=== PATIENT | male | born 1970 | race Caucasian/White ===

== ENCOUNTER 2021-11-28 20:34 | Emergency (ER) | payer OTHER, SELFPAY ==
--- NOTE | ~2021-11-28 | XR_ITS ---
EXAM: XR finger 2nd LT min 2V DATE: 11/28/2021 21:30 HISTORY: LACERATION FROM WOOD WORK TOOL AT [facility] JOINT 2ND DIGIT . COMPARISON: None available. FINDINGS: Normal mineralization. Incomplete fracture of the dorsal cortex of the second metacarpal h ead, with overlying skin laceration and soft tissue swelling. No lytic or blastic lesion. Joint space s are maintained. IMPRESSION: Incomplete fracture of the dorsal cortex the second metacarpal head. Reviewed, dictated and finalized at location K. IMPRESSION: Incomplete fracture of the dorsal cortex the second metacarpal head .
[2021-11-28 20:44] VITALS: BP 151/99; PULSE 81; RESP 18; TEMP 36.8; O2SAT 98
--- NOTE | 2021-11-28 21:29 | ED.WOUNDLAC ---
HPI - Wound/Laceration General Chief Complaint: Wound/Laceration Stated Complaint: cut left hand Time Seen by Provider: 11/28/21 21:01 Source: patient Mode of arrival: ambulatory Limitations: no limitations History of Present Illness HPI narrative: 50-year-old male presents the emergency room with complaints laceration to his left hand second knuckle. Patient was whittling wood when the knife slipped and hit his hand patient states he is up-to-date on his tetanus shot has had it in the last 5 years. Patient with full range of motion and no numbness or tingling to the finger. Capillary refill less than 2 seconds. Related Data Allergies Allergy/AdvReac Type Severity Reaction Status Date / Time No Known Allergies Allergy Verified 11/28/21 22:06 Review of Systems Review of Systems: CONSTITUTIONAL: Denies fever, chills, or sweats. EYES: Denies visual changes, redness, or discharge. ENT: Denies rhinorrhea, congestion, sore throat, or otalgia. CARDIOVASCULAR: Denies chest pain, palpitations, or edema. RESPIRATORY: Denies cough or dyspnea. GASTROINTESTINAL: Denies abdominal pain, nausea, vomiting, or diarrhea. GENITOURINARY: Denies dysuria or hematuria. SKIN: Laceration left hand second knuckle. Denies rash or itching. MUSCULOSKELETAL: Denies back pain, joint pain, or myalgia. NEUROLOGIC: Denies headache, numbness, dizziness, or weakness. PSYCHIATRIC: Denies anxiety or depression. Exam Narrative: GENERAL: Well-appearing, well-nourished, and in no acute distress. HEAD: Normocephalic, atraumatic. EYES: PERRLA and EOMI. ENT: Nares clear, no rhinorrhea or epistaxis. Mucous membranes moist. Oropharynx without tonsillar hypertrophy exudate or other lesions. Bilateral TMs pearly reddy nonbulging NECK: Supple. No adenopathy or masses. No carotid bruits or JVD CHEST: Clear to auscultation. No respiratory distress. No wheezes rales or rhonchi HEART: Regular rate and rhythm. No murmur heard. Normal peripheral pulses. ABDOMEN: Soft, nontender, nondistended, normal active bowel sounds. EXTREMITIES: Normal range of motion. No edema. SKIN: 1.5 cm laceration to left second metacarpal joint. Warm, dry, no rash. NEURO: No focal deficits. Alert and oriented x3. PSYCH: Normal mood and affect. Course Course Emergency Course: Patient laceration repaired without difficulty. Talk to hand surgeon Dr. Marie. Patient to call in the morning follow-up with him on Friday. Patient educated on need for antibiotics and wound care. Patient discharged home. Vital Signs Vital signs: Vital Signs Temperature 36.8 C 11/28/21 20:44 Pulse Rate 81 11/28/21 20:44 Respiratory Rate 18 11/28/21 20:44 Blood Pressure 151/99 H 11/28/21 20:44 Pulse Oximetry 98 11/28/21 20:44 Oxygen Delivery Room Air 11/28/21 20:44 Temperature 36.8 C 11/28/21 20:44 Pulse Rate 81 11/28/21 20:44 Respiratory Rate 18 11/28/21 20:44 Blood Pressure 151/99 H 11/28/21 20:44 Pulse Oximetry 98 11/28/21 20:44 Oxygen Delivery Room Air 11/28/21 20:44 Procedures Laceration Laceration 1: Date: 11/28/21 Time: 22:20 Site: hand Side (If applicable): left Size (cm): 2 Description: linear Depth: involves tendon Local Anesthetic: lidocaine 1% Amount of anesthesia used (mL): 2 Pre-repair: wound explored and irrigated extensively ====== Skin Level ====== Skin layer closed with: nylon Size (cm): 4-0 (nylon) Number of sutures: 3 Technique: simple, interrupted ====== Subcutaneous Layer ====== ====== Muscle Layer ====== ====== Tendon Layer ====== Dressing: antibiotic ointment and non adherent applied with Coban. Nursing to apply splint. MDM - Wound/Laceration MDM Narrative Medical decision making narrative: 50-year-old male HPI as noted. Suspect laceration versus open fracture. X-ray shows incomplete fracture of the dorsal cortex
[2021-11-28] MEDS: Please add drug allergy info to patient profile. 1 EACH XX (22:25)
[2021-11-28] MEDS: LIDOCAINE HCL 1% PF 30 ML VIAL (22:25)
[2021-11-28] MEDS: AMOXICILLIN/CLAVULANATE K 875-125 MG TAB 1 TABLET PO (22:48)
== END 2021-11-28 23:20 | disposition home or self-care (01) ==
PROVIDERS: Emergency Provider Nurse Practitioner Family
DX: S62.301B Unspecified fracture of second metacarpal bone, left hand, initial encounter for open fracture (principal); W26.0XXA Contact with knife, initial encounter
CPT/HCPCS: 12001; 29130; 73140; 99284; A9270

== ENCOUNTER 2024-10-04 08:08 | Emergency (ER) | payer OTHER, SELFPAY ==
--- NOTE | ~2024-10-04 | XR_ITS ---
XR knee RT 3V Ordering provider: Tiara Patrick APRN History: . twisting injury . Comparison: None. FINDINGS: BONES: No acute fracture or dislocation. JOINT SPACES: Normal. SOFT TISSUES: Minimal fluid in the suprapatellar bursa. IMPRESSION: No acute osseous abnormality right knee. Lucency seen in the area of the tibial spines normal is most likely summation shadow. If clinically suspicious CT is advised Reviewed, dictated and finalized at location A.
--- NOTE | 2024-10-04 08:09 | ED_ITS ---
HPI - Extremity Injury (Lower) General Chief Complaint: Extremity Injury, Lower Stated Complaint: right knee injury Time Seen by Provider: 10/04/24 08:21 Source: patient, RN notes reviewed and old records reviewed Mode of arrival: ambulatory Limitations: no limitations History of Present Illness HPI Narrative: 53-year-old male presents to the [facility] with right knee pain since Friday, 2 days. Reports a twisting injury. Pain to the medial aspect of the knee. Has been applying ice, wearing a compression sleeve. Injury: Right: knee Treatments prior to arrival: cold therapy, NSAIDS and other (knee brace) Related Data Home Medications ?Medication ?Instructions ?Recorded ?Confirmed ?Last Taken ?Type losartan 100 mg tablet mg 10/04/24 Unknown History Allergies Allergy/AdvReac Type Severity Reaction Status Date / Time No Known Allergies Allergy Verified 10/04/24 08:20 Review of Systems Review of Systems: All systems reviewed & are unremarkable except as noted in HPI and below Constitutional: Constitutional: Reports no additional constitutional complaints ENT: Reports system reviewed and no additional complaints, except as documented Cardiovascular: Cardiovascular: Reports no additional cardiovascular complaints, Denies chest pain and Denies dyspnea Respiratory: Respiratory: Reports no additional respiratory complaints, Denies chest congestion, Denies cough and Denies dyspnea Musculoskeletal: Musculoskeletal: Reports as per HPI and Reports arthralgias (Right medial knee) Integumentary/Breasts: Skin/Breast: Reports system reviewed and no additional complaints, except as docu PMFSH Past Medical History Medical History History of high blood pressure Comments At the time of my signature, I reviewed and agree with the nursing past medical, surgical, social, and family history. There is no relevant family history pertinent to the patient complaint. Exam Const: General: cooperative, healthy appearing, comfortable, no acute distress, well developed, alert and well nourished Nutritional Appearance: well nourished Orientation/consciousness: patient oriented x3 Limitations: no limitations HENMT: Head: normal to inspection Eyes: General: appearance normal, both eyes and all related structures Alignment and Position: alignment normal Neck: Neck: normal visual inspection, full ROM, no lymphadenopathy and no meningeal signs Chest: Chest palpation & inspection: normal inspection of the chest Resp: Effort & Inspection: normal respiratory effort and able to speak in complete sentences Cardio: Rate: regular rate Skin: General skin exam: normal color and no rashes or lesions noted Neuro: General: patient oriented x3, moves all extremities and no meningeal signs Cognition (Neuro): normal cognition Speech: normal speech Extrem: General: normal to inspection, full ROM, capillary refill normal and Limp noted (using cane) Right lower extremity: knee Details: tenderness Location: of the medial joint line, normal ROM and knee ligament exam normal; no swelling, no abrasions, no lacerations, no ecchymosis, no penetrating wound and no deformity, lower leg Details: normal to inspection; no tenderness and ankle Details: normal to inspection and normal ROM; no swelling Psych: Appearance: grossly normal and well kempt Mental Status: mental status grossly normal Speech and movement: Normal speech and movement present and Clear speech present Affect: normal affect Attitude: cooperative Course Course Level of Care: Express Care Visit Vital Signs Vital signs: Vital Signs Temperature 97.9 F 10/04/24 08:14 Pulse Rate 95 10/04/24 08:14 Respiratory Rate 20 10/04/24 08:14 Blood Pressure 156/99 H 10/04/24 08:14 Pulse Oximetry 98 10/04/24 08:14 Oxygen Delivery Room Air 10/04/24 08:14 Temperature 97.9 F 10/04/24 08:14 Pulse Rate 95 10/04/24 08:14 Respiratory Rate 20 10/04/24 08:14 Blood Pressure 156/99 H 10/04/24 08:14 Pulse Oximetry 98 10/04/24 08:14 Oxygen Delivery Room Air 10/04/24 08:14 Reviewed MDM - Extremity Injury (Lower) MDM Narrative Medical decision making narrative: Patient sitting in exam nontoxic vitals stable. Patient in no acute distress. Patient presents with right knee pain x2 days. Reports twisting injury Tenderness to the medial aspect, x-ray negative Patient appropriate for outpatient treatment with close follow Discharge instructions reviewed with patient, as well as provided in writing per nursing staff. The instructions also include specific and strict return/GO TO THE ER as well as f/u information. All questions have been answered, and the patient deny any further questions with discharge and discharge plan. Some parts of this dictation were generated by voice recognition software and may contain typographical and/or grammatical inaccuracies. Differential Diagnosis Differential diagnosis: Likely other (Knee fracture, knee sprain, ACL, MCL, meniscus injury) Imaging Data Radiologist's impression: XR knee RT 3V Ordering provider: Tiara Patrick APRN History: . twisting injury . Comparison: None. FINDINGS: BONES: No acute fracture or dislocation. JOINT SPACES: Normal. SOFT TISSUES: Minimal fluid in the suprapatellar bursa. IMPRESSION: No acute osseous abnormality right knee. Lucency seen in the area of the tibial spines normal is most likely summation shadow. If clinically suspicious CT is advised Critical Care Time Critical Care Time Critical Care Time: No Discharge Plan Discharge Clinical Impression: Acute pain of right knee, Elevated blood pressure reading Patient Disposition: Home Condition: Stable Instructions: Antibiotic Form, Knee Sprain (ED) Additional Instructions: Your Xray did not show a fracture. Ice should be applied to help reduce swelling. It can be used for 20 to 30 minutes, every 2-3 hours while awake. Do not apply ice directly to your skin. Knee brace or knee support can be helpful in decreasing pain. You can alternate ibuprofen 600mg and Tylenol 650mg every 4 hours as needed for pain Please schedule a follow-up visit with your personal physician for further evaluation and treatment within 2 weeks especially if symptoms persist. Today your blood pressure was 156/99. Is recommended you follow-up with your primary care provider within the next 2 weeks to have this rechecked. For new or worsening symptoms go directly to the emergency room Patient Language: Turkmen Prescriptions: No Action losartan 100 mg tablet Follow-up/Referrals: Conrado,MD Jorge [Primary Care Provider] - 1 Week ([facility] follow-up right knee pain blood presssure check. ) Stand Alone Forms: Work/School Release IP Time of Disposition: 08:54
[2024-10-04 08:14] VITALS: BP 156/99; PULSE 95; RESP 20; TEMP 36.6; O2SAT 98
--- OUTSIDE RECORDS SUMMARY | 2024-10-04 08:14 | XMS_ITS | Encounter Summary ---
Author Organization [facility] Address [address] [place] [address] Care Team Providers Care Rn Acute Care Name Role Phone Tae Patel MD Primary Care Provider [phone] Encounter Details Date Type Department Care Team (Latest Contact Info) Description 01/07/2007 Outpatient Historical [facility] Internal Medicine [place] [address] [facility] [address] [place] [address] Wayne Martin MD [address] [place] [address] Essential Hypertension, Benign (Primary Dx) Social History Tobacco Use Types Packs/Day Years Used Date Smoking Tobacco: Never Assessed Sex and Gender Information Value Date Recorded Sex Assigned at Not on file 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 Gender Identity Not on file Sexual Orientation Not on file documented as of this encounter Plan of Treatment Not on file documented as of this encounter Procedures Procedure Name Priority Date/Time Associated Diagnosis Comments TSH Routine 01/07/2007 4:35 PM CDT COMPREHENSIVE METABOLIC PANEL Routine 01/07/2007 4:35 PM CDT documented in this encounter Results * TSH (01/07/2007 4:35 PM CDT) TSH 0.99 0.27 - 4.20 uU/mL INTERFACE SYSTEM 01/07/2007 4:35 PM CDT Wayne Martin MD CHEMISTRY ORDERABLES Edited INTERFACE SYSTEM Refer to clinic/hospital department * COMPREHENSIVE METABOLIC PANEL (01/07/2007 4:35 PM CDT) GLUCOSE 84 65 - 99 mg/dL INTERFACE SYSTEM CREATININE 0.90 0.67 - 1.17 mg/dL INTERFACE SYSTEM CALCIUM 9.1 8.4 - 10.2 mg/dL INTERFACE SYSTEM ALKALINE PHOSPHATASE 48 40 - 129 U/L INTERFACE SYSTEM AST 21 12 - 38 U/L INTERFACE SYSTEM ALT 22 0 - 41 U/L INTERFACE SYSTEM TOTAL PROTEIN 7.0 6.3 - 8.6 g/dL INTERFACE SYSTEM ALBUMIN 4.5 3.4 - 4.8 g/dL INTERFACE SYSTEM BILIRUBIN TOTAL 0.3 0.2 - 1.0 mg/dL INTERFACE SYSTEM BUN 18 6 - 20 mg/dL INTERFACE SYSTEM SODIUM 141 135 - 145 mmol/L INTERFACE SYSTEM POTASSIUM 4.1 3.5 - 4.9 mmol/L INTERFACE SYSTEM CHLORIDE 104 96 - 108 mmol/L INTERFACE SYSTEM CO2 22 22 - 30 mmol/L INTERFACE SYSTEM GFR, >60 >=60 mL/min/1.7 sq meter INTERFACE SYSTEM GFR >60 >=60 mL/min/1.7 sq meter INTERFACE SYSTEM Comment: Estimated GFR rate interpretative information for both Americans and non- Americans is available on the [facility] Intranet at: [email or web address] Select: Lab Policies and Procedures Select: Reference Ranges - GFR 01/07/2007 4:35 PM CDT Wayne Martin MD CHEMISTRY ORDERABLES Edited INTERFACE SYSTEM Refer to clinic/hospital department documented in this encounter Visit Diagnoses Diagnosis Essential hypertension, benign- Primary documented in this encounter Care Teams Rn Acute Care Relationship Specialty [place] [address] [address] [facility] [address] [place] [address] PCP - General Family Practice 02/22/20 documented as of this encounter
--- OUTSIDE RECORDS SUMMARY | 2024-10-04 08:14 | XMS_ITS | Clinical Summary ---
Author Organization [facility] Address [address] [place] [address] Care Team Providers Care Binder Cutter Name Role Phone Unavailable Primary Care Provider Unavailabl e Source Comments [facility],non-owned Affiliates and Associated Physician Practices is amultiple site organization consisting of ambulatory clinics and hospital sitesin [place], [place], [place] and [place]. This disclosure is being madepursuant to the Care Everywhere program and may not contain all information available regarding this patient. 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 Gender Identity Not on file Sexual Orientation Not on file Plan of Treatment Health Maintenance Due Date Last Done Comments COLOGUARD (AGES 45-75) - COL ON CA SCREENING 1968 COLON MONITORING 1968 COLONOSCOPY - COLON CA SCREENING 1968 CT COLONOGRAPHY - COLON CA SCREENING 1968 Colorectal Cancer Screening 1968 FIT - COLON CA SCREENING 1968 FLEX SIG - COLON CA SCREENING 1968 LIPID TESTING 1968 HIV SCREENING 12/22/1983 HEPATITIS C SCREENING 12/17/1986 DTAP/TDAP/TD VACCINES (1 - Tdap) 12/22/1987 HEPATITIS B VACCINE (1 of 3 - 19+ 3-dose series) 12/22/1987 PNEUMOCOCCAL VACCINE 50+ (1 of 1 - PCV) 2018 ZOSTER VACCINE (1 of 2) 2018 COVID-19 VACCINE (3 2023-2 5 season) 2024 10/20/2020, 09/29/2020 DEPRESSION SCREENING 06/09/2024 INFLUENZA VACCINE (Season Ended) 2025 HIB VACCINE Aged Out No longer eligi ble based on patient's age to complete this topic HPV VACCINE Aged Out No longer eligi ble based on patient's age to complete this topic MENINGOCOCCAL (Group B) VACCINE SHARED DECISION-MAKING Aged Out No longer eligible based on patient's age to complete this topic MENINGOCOCCAL GROUPS A/C/Y/W VACCINE Aged Out No longer eligible b ased on patient's age to complete this topic Insurance [employer] [facility] Address: [facility] [id number] [place] [id number]
--- OUTSIDE RECORDS SUMMARY | 2024-10-04 08:14 | XMS_ITS | Encounter Summary ---
Author Organization [facility] Address [address] [place] [address] Care Team Providers Care Sewing Machine Operator Plastic Zipper Name Role Phone Tae Patel MD Primary Care Provider [phone] Encounter Details Date Type Department Care Team (Late st Contact Info) Description 11/30/2004 Outpatient Historical [facility] Internal Medicine [facility] [address] [facility] [address] [place] [address] Wayne Martin MD [address] [place] [address] Social History Tobacco Use Types Packs/Day Years Used Date Smoking Tobacco: Never Assessed Sex and Gender Information Value Date Recorded Sex Assigned at Not on file 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
--- OUTSIDE RECORDS SUMMARY | 2024-10-04 08:14 | XMS_ITS | Encounter Summary ---
Author Organization [facility] Address [address] [place] [address] Care Team Providers Care Purification Operator Helper Name Role Phone Tae Patel MD Primary Care Provider [phone] Encounter Details Date Type Department Care Team (Late st Contact Info) Description 07/03/2005 Orders Only [facility] Di[facility] 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 PCP: kathy. WHO CALLED: Pharmacy called. PHARMACY NUMBER: [phone] SECTION 1: REQUESTED ACTION [email or web address] 07/03/05 at 11:40 am: MEDICATION REQUEST: Patient requests a refill. MEDICATIONS: ENALAPRIL MALEATE ORAL TABLET 2.5 MG, 1 Every Day, 30 Dispensed, 3 Fills, status: NEW PRESCRIPTION,11/30/2004. last refill 04/28/2005 DOCTOR`S RESPONSE: [email or web address] 07/03/05 at 12:18 pm Refill now with 2 additional refills.pt needs appt in the next mos FINAL ACTION: [email or web address] 07/03/05 at 01:04 pm Called pharmacy at 07/03/05 at 01:04 pm. called in rx refill listed above with 2 additional refills/ tc Electronically Signed by: Misty Mitchell on Sunday, July 03, 2005 documented in this encounter Plan of Treatment Not on file documented as of this encounter Visit Diagnoses Not on filedocumented in this encounter Care Teams Purification Operator Helper Relationship Specialty [place] [address] [address] PCP - General Family Practice 02/22/20 documented as of this encounter
--- OUTSIDE RECORDS SUMMARY | 2024-10-04 08:14 | XMS_ITS | Encounter Summary ---
Author Organization [facility] Address [address] [place] [address] Care Team Providers Care Dry Lumber Grader Name Role Phone Tae Patel MD Primary Care Provider [phone] Encounter Details Date Type Department Care Team (Late st Contact Info) Description 08/27/2006 Orders Only [facility] Diabetic [facility] [address] 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 WHO CALLED: Pharmacy called. PHARMACY NUMBER: [phone] SECTION 1: REQUESTED ACTION [email or web address] 08/27/06 at 03:50 pm: MEDICATION REQUEST: Patient requests a refill. MEDICATIONS: ENALAPRIL MALEATE ORAL TABLET 2.5 MG, 1 Every Day, 30 Dispensed, 2 Fills, status: CONTINUED, 03/26/2006. DOCTOR`S RESPONSE: [email or web address] 08/27/06 at 04:24 pm Please schedule an appointment with me in the next 2 weeks. Refill this time only. FINAL ACTION: ivan 08/27/06 at 04:46 pm Called pharmacy at 08/27/06 at 04:46 pm. refill this time only. Electronically Signed by: Princess Gaston on Sunday, August 27, 2006 documented in this encounter Plan of Treatment Not on file documented as of this encounter Visit Diagnoses Not on filedocumented in this encounter Care Teams Dry Lumber Grader Relationship Specialty [place] [address] [address] [place] [address] PCP - General Family Practice 02/22/20 documented as of this encounter
--- OUTSIDE RECORDS SUMMARY | 2024-10-04 08:14 | XMS_ITS | Clinical Summary ---
Author Organization [facility] e Address [address] [place] [address] [place] [address] Care Team Providers Care Executive Officer Special Warfare Team Name Role Phone Tae Patel MD Primary Care Provider [phone] Allergies Active Allergy Reactions Criticality Noted Date Comments No Known Allergies 11/25/2005 Medications No known medications Active Problems Problem Noted Date Diagnosed Date History of anxiety 10/18/2014 Marijuana abuse 10/18/2014 Family history of diabetes mellitus (DM) 011 Elevated blood pressure reading Resolved Problems Problem Noted Date Diagnosed Date Resolved Date Routine general medical exam ination at a health care facility 11/25/2005 10/01/2010 Open wound of hand except fi nger(s) alone, without mention of complication 11/30/2004 10/02/19 11 Immunizations Immunization Administration Dates Next Due (ADACEL/BOOSTRIX)(10 YR UP) TDAP VACCINE, 0.5ML, IM 01/02/2018 (TDVAX)(7 YRS UP) TETANUS AN D DIPHTHERIA TOXOIDS, ADSORBED (2 LF OF TETANUS TOXOID AND 2 LF OF DIPHTHERIA TOXOID), 0.5ML (PF), IM 11/30/2004 Family History Medical History Relation Name Comments Healthy Daughter Cancer Father pancreatic canc er Diabetes Father Hypertension Father Other Father ulcerative coli tis Healthy Maternal Grandfather Healthy Maternal Grandmother Healthy Mother Diabetes Paternal Grandfather Unknown Paternal Grandmother Healthy Sister Healthy Son Colon Cancer Neg Hx Relation Name Status Comments Daughter Alive Father Alive Maternal Grandfather Maternal Grandmother Mother Alive Paternal Grandfather Paternal Grandmother Sister Alive Son Alive Social History Tobacco Use Types Packs/Day Years Used Date Smoking Tobacco: Former Cigarettes 1.5 10 0 06/09/1986 - 06/09/1996 Smokeless Tobacco: Never Alcohol Use Standard Drinks/Week Comments Yes 0 (1 standard drink = 0.6 oz pur e alcohol) Sex and Gender Information Value Date Recorded Sex Assigned at Not on file 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 Gender Identity Not on file Sexual Orientation Not on file 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 Not on file Not on file Not on fi le Last Filed Vital Signs Vital Sign Reading Time Taken Comments Blood Pressure 176/105 04/03/2020 1:00 PM CDT Pulse 75 04/03/2020 12:51 PM CDT Temperature 36.4 C (97.5 F) 04/03/2020 12:39 PM CDT Respiratory Rate 16 04/03/2020 12:5 1 PM CDT Oxygen Saturation 100% 04/03/2020 12: 51 PM CDT Inhaled Oxygen Concentration - - Weight 81.6 kg (179 lb 12.8 oz) 020 10:37 AM CDT Height 182.9 cm (6') 04/03/2020 10:37 AM CDT Body Mass Index 24.39 04/03/2020 10:37 AM CDT Plan of Treatment Health Maintenance Due Date Last Done Comments HEPATITIS B VACCINES (1 of 3 - 19+ 3-dose series) 12/22/1987 FIT-DNA Q 3 years 2013 FIT/FOBT Q 1 year 2013 Flex Sig/CT Colonography Q 5 years 2013 ZOSTER VACCINE (1 of 2) 2018 INFLUENZA VACCINE (#1) 2024 COLORECTAL SCREENING 04/03/2025 04/03/2020, 04/03/20 20 Colorectal Cancer Screening 04/03/2025 DTAP/TDAP/TD VACCINES (2 - T d or Tdap) 01/03/2028 01/02/2018, 06/09/2010, 11/30/2004 Medical Devices Implanted Type Area Mechanic/Welder Device Identifier Shelf Expiration Date Model / Serial / Lot Clip Endo Resolution 360 235cm [id number] - [id number] Implanted:Qty: 1 on 04/03/2020 by Bryan Gardner MD at [facility] Clip N/A: Perianal [employer] [id number] 01/05/2023 [id number] / / [id number] Description:placed in sigmoi d at polyp site Procedures Procedure Name Priority Date/Time Associated Diagnosis Comments COLONOSCOPY REPORT 04/03/2020 12 :43 PM CDT from Last 3 Months or Most Recently Relevant to Health Maintenance Results * COLONOSCOPY REPORT (04/03/2020 12:43 PM CDT) Narrative Procedure Note Bryan Gardner MD - 04/03/2020 12:42 PM CDT [facility] Endoscopy Patient Name: Uziel Velasquez Procedure Date: 04/03/2020 Date of : 1970 Admit Type: Outpatient Age: 49 Attending MD: Bryan Gardner MD Procedure: Colonoscopy Indications: Screening for colorectal malignant neoplasm, This is the patient's first colonoscopy Providers: Bryan Gardner MD Referring MD: Tae Patel MD Medicines: Monitored Anesthesia Care Procedure: Informed consent was obtained for the procedure, including moderate sedation after risks were discussed. Based on the pre-procedure assessment, including review of the patient's medical history, medications, allergies, and review of systems, the patient was deemed to be an appropriate candidate for sedation. A timeout was performed. Continuous ECG monitoring, pulse oximetry, blood pressure monitoring, and direct observation were performed. The Colonoscope was introduced through the anus and advanced to the cecum, identified by appendiceal orifice and ileocecal valve. The colonoscopy was performed without difficulty. The patient tolerated the procedure well. The quality of the bowel preparation was good. Estimated Blood Loss: Estimated blood loss was minimal. Findings: The perianal and digital rectal examinations were normal. Multiple small-mouthed diverticula were found in the sigmoid colon. A localized area of nodular mucosa was found at the ileocecal valve. Area was successfully injected with saline for lesion assessment, and this injection appeared to lift the lesion adequately. No evidence of underlying polyp following lift. A 8 mm polyp was found in the sigmoid colon. The polyp was semi-pedunculated. The polyp was removed with a cold snare. Resection and retrieval were complete. For hemostasis, one hemostatic clip was successfully placed (MR conditional). There was no bleeding at the end of the maneuver. A 3 mm polyp was found in the rectum. The polyp was sessile. The polyp was removed with a cold biopsy forceps. Resection and retrieval were complete. Internal hemorrhoids were found during retroflexion. The hemorrhoids were small. Complications: No immediate complications. Impression: - Diverticulosis in the sigmoid colon. - Abnormal mucosa at the ileocecal valve. Injected. No polyp was visualized. - One 8 mm polyp in the sigmoid colon, removed with a cold snare. Resected and retrieved. Clip (MR conditional) was placed. - One 3 mm polyp in the rectum, removed with a cold biopsy forceps. Resected and retrieved. - Internal hemorrhoids. Recommendation: - Await pathology results. - Repeat colonoscopy in 5 years for surveillance based on pathology results. Bryan Gardner MD 04/03/2020 12:42:38 PM This report has been signed electronically. Number of Addenda: 0 [address] [facility] [place] [address] Bryan Gardner MD GI PROCEDURE ORDERABL ES Final Result from Last 3 Months or Most Recently Relevant to Health Maintenance Advance Directives For more information, please contact: [phone] * Full Code (Latest Code Status on File) Date Activated Date Inactivated Comments 04/03/2020 10:39 AM 04/03/2020 3:20 PM Care Teams Executive Officer Special Warfare Team Relationship Specialty [place] [address] [address] PCP - General Family Practice 02/22/20
--- OUTSIDE RECORDS SUMMARY | 2024-10-04 08:14 | XMS_ITS | Encounter Summary ---
Author Organization [email or web address] Address 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
--- OUTSIDE RECORDS SUMMARY | 2024-10-04 08:14 | XMS_ITS | Encounter Summary ---
Author Organization [facility] Address [address] [place] [address] Care Team Providers Care Drop Worker Name Role Phone Tae Patel MD Primary Care Provider [phone] Encounter Details Date Type Department Care Team (Late st Contact Info) Description 11/25/2005 Outpatient Historical [facility] Internal Medicine [facility] [address] [facility] [address] [place] [address] Wayne Martin MD [address] [place] [address] Social History Tobacco Use Types Packs/Day Years Used Date Smoking Tobacco: Never Assessed Sex and Gender Information Value Date Recorded Sex Assigned at Not on file 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 Gender Identity Not on file Sexual Orientation Not on file documented as of this encounter Last Filed Vital Signs Vital Sign Reading Time Taken Comments Blood Pressure 110/80 11/25/2005 11:30 AM CDT Pulse 72 11/25/2005 11:30 AM CDT Temperature 36.6 C (97.8 F) 11/25/2005 11:30 AM CDT Respiratory Rate 16 11/25/2005 11:30 AM CDT Oxygen Saturation - - Inhaled Oxygen Concentration - - Weight 79.4 kg (175 lb) 11/25/2005 11:30 AM CDT Height 180.3 cm (5' 11 ) 11/25/2005 11:30 AM CDT Body Mass Index 24.41 11/25/2005 11:30 AM CDT documented in this encounter Plan of Treatment Not on file documented as of this encounter Visit Diagnoses Not on filedocumented in this encounter Care Teams Drop Worker Relationship Specialty [place] [address] [facility] [address] [place] [address] PCP - General Family Practice 02/22/20 documented as of this encounter
--- OUTSIDE RECORDS SUMMARY | 2024-10-04 08:14 | XMS_ITS | Encounter Summary ---
Author Organization [employer] Address [address] [place] [address] Care Team Providers Care Federal District Clerk Name Role Phone Tae Patel MD Primary Care Provider [phone] Encounter Details Date Type Department Care Team (Late st Contact Info) Description 11/18/2005 Orders Only [facility] [address] 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 WHO CALLED: Pharmacy called. PHARMACY NUMBER: [phone] SECTION 1: REQUESTED ACTION ivan 11/18/05 at 04:09 pm: MEDICATION REQUEST: Patient requests a refill. MEDICATIONS: ENALAPRIL MALEATE ORAL TABLET 2.5 MG, 1 Every Day, 30 Dispensed, 2 Fills, status: CONTINUED, 07/03/2005. last fill 4-18-06 DOCTOR`S RESPONSE: braulio 11/18/05 at 04:25 pm Refill now with 3 additional refills. FINAL ACTION: thalia 11/18/05 at 04:32 pm Called pharmacy at 11/18/05 at 04:32 pm. called in refill above with 3 additional Electronically Signed by: Misty Mitchell on Friday, November 18, 2005 documented in this encounter Plan of Treatment Not on file documented as of this encounter Visit Diagnoses Not on filedocumented in this encounter Care Teams Federal District Clerk Relationship Specialty [place] [address] [facility] [address] [place] [address] PCP - General Family Practice 02/22/20 documented as of this encounter
--- OUTSIDE RECORDS SUMMARY | 2024-10-04 08:14 | XMS_ITS | Encounter Summary ---
Author Organization [employer] Address [address] [place] [address] Care Team Providers Care Formula Room Worker Name Role Phone Tae Patel MD Primary Care Provider [phone] Encounter Details Date Type Department Care Team (Late st Contact Info) Description 01/07/2007 Orders Only [facility] Diabetic [facility] [address] 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 MEDICATIONS: Medication list current. CHIEF COMPLAINT f/u htn HISTORY: HISTORY: 401.1-HYPERTENSION ESSENTIAL BENIGN The patient`s weight is the same. The patient is somewhat compliant with diet. The patient`s exercise is the same. The patient is not checking out of office blood pressures. The patient denies chest pain, shortness of breath, dyspnea on exertion, pedal edema, or headache. The patient is tolerating the medication. Labs will be obtained for this patient. The blood pressure has not been taken outside the office since the last visit. CURRENT PROBLEM LIST: 401.1 HYPERTENSION ESSENTIAL BENIGN 882.0 LACERATION (OPEN WOUND) HAND, EXCEPT FINGERS V70.0 ROUTINE GENERAL MEDICAL EXAMINATION CURRENT MEDICATION LIST: ENALAPRIL MALEATE ORAL TABLET 2.5 MG, 1 Every Day CURRENT ALLERGY LIST: NKDA ROS: GENERAL: See HISTORY OF PRESENT ILLNESS. ALLERGIC/IMMUNOLOGIC: No hay fever or history of environmental allergies. No chronic problems with immunity. EYES: No vision changes or diplopia. ENT: No hearing loss, epistaxis, hoarseness or dysphagia. No sinus congestion. ENDOCRINE: No heat or cold intolerance, no excessive thirst. CARDIAC: See HISTORY OF PRESENT ILLNESS. RESPIRATORY: No dyspnea, cough, hemoptysis or wheezing. SKIN/BREAST/CHEST: No rashes or non-healing lesions. No breast symptoms noted. HEMATOLOGIC/LYMPHATIC: No anemia, easy bruising, bleeding or swollen nodes. : No dysuria or hematuria. GI: No abdominal pain, nausea, vomiting, diarrhea, constipation, melena, or hematochezia. NEUROLOGIC: No weakness, dizziness, loss of consciousness, transient ischemic symptoms, or seizures. MUSCULOSKELETAL: No muscle or joint pain, weakness, swelling or inflammation. No restriction of motion, no atrophy or backache. PSYCHIATRIC: No increased nervousness, mood changes or depression. Coping well. PAST MEDICAL HISTORY: MEDICAL: Hypertension. SURGICAL: No previous surgery. ALLERGIES/ADVERSE REACTIONS: No known drug allergies. FAMILY HISTORY: FATHER: The father is living. No major illnesses are known. MOTHER: The mother is living. No major illnesses are known. SOCIAL HISTORY: MARITAL HISTORY: , living with spouse. TOBACCO USE: Has no significant smoking history. ALCOHOL: Drinks a minimal amount of alcohol. PHYSICAL EXAMINATION: CONSTITUTIONAL: GENERAL APPEARANCE: Healthy appearing patient in no distress. EYES: CONJUNCTIVAE/LIDS: Conjunctivae and lids appear normal. PUPILS: Pupils equal and normally reactive to light and accommodation. EARS, NOSE, MOUTH AND THROAT: EXTERNAL/EARS AND NOSE: Overall appearance normal with no scars, lesions or masses. EARS: Tympanic membranes shiny without retraction. Canals unremarkable. Hearing grossly normal. NOSE (AND SINUS): No abnormality of the nose or sinuses is noted. ORAL: Inspection of gums, lips, palate, and teeth normal. No scars, lesions, or masses. Oral mucosaunremarkable with non-inflamed posterior pharynx. NECK/THYROID: Trachea midline. No thyroid enlargement, tenderness, or mass. No supraclavicular or cervical adenopathy. RESPIRATORY: Clear to auscultation and percussion. Normal respiratory effort. CARDIOVASCULAR: CARDIAC: Regular rhythm. No murmurs, rubs, or gallops. ARTERIAL: No aortic bruits. JUGULAR VEINS Jugular veins within normal limits. EDEMA/VARICOSITIES OF EXTREMITIES: No edema or varicosities. LYMPHATICS: No lymphadenopathy in the neck, axillae, or groin. NEUROLOGIC: CRANIAL NERVES: inspector semiconductor wafer II-XII grossly intact. ASSESSMENT/PLAN: 401.1-HYPERTENSION ESSENTIAL BENIGN ASSESSMENT: The blood pressure remains satisfactory. Will not change medication, continue to monitor for complications. The patient was encouraged to follow a low salt diet. Regular aerobic exercise was encouraged. Will check laboratory to assess disease effect, to assess medication effect. Clinical guidelines reviewed. Protocol reviewed. The patient was instructed to obtain outside BP readings for the next appointment.the pts repeat bp by was 110/80 mmhg. MEDICATIONS: ENALAPRIL MALEATE ORAL TABLET 2.5 MG, 1 Every Day, 30 Dispensed, 11 Fills, status: CONTINUED, 01/07/2007. LAB ORDERS: Order number: [id number] Test Ordered: COMPREHENSIVE METABOLIC PANEL & GFR 1112 Order number: [id number] Test Ordered: TSH 1720 REPEAT VITAL SIGNS: BLOOD PRESSURE: 110/80. Right Arm Sitting RETURN VISIT : Patient instructed to return in 11 months. Electronically Signed by: Wayne Martin MD on Sunday, January 07, 2007 documented in this encounter Plan of Treatment Not on file documented as of this encounter Visit Diagnoses Not on filedocumented in this encounter Care Teams Formula Room Worker Relationship Specialty [place] [address] [address] [place] [address] PCP - General Family Practice 02/22/20 documented as of this encounter
--- OUTSIDE RECORDS SUMMARY | 2024-10-04 08:14 | XMS_ITS | Encounter Summary ---
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
--- OUTSIDE RECORDS SUMMARY | 2024-10-04 08:14 | XMS_ITS | Encounter Summary ---
Author Organization [facility] Address 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 Gender Identity Not on file Sexual Orientation Not on file documented as of this encounter Last Filed Vital Signs Vital Sign Reading Time Taken Comments Blood Pressure 110/80 01/07/2007 3:00 PM CDT Pulse 72 01/07/2007 3:00 PM CDT Temperature 35.9 C (96.7 F) 01/07/2007 3:00 PM CDT Respiratory Rate 18 01/07/2007 3:00 PM CDT Oxygen Saturation - - Inhaled Oxygen Concentration - - Weight 74.8 kg (165 lb) 01/07/2007 3:00 PM CDT Height 180.3 cm (5' 11 ) 01/07/2007 3:00 PM CDT Body Mass Index 23.01 01/07/2007 3:00 PM CDT documented in this encounter Plan of Treatment Not on file documented as of this encounter Visit Diagnoses Not on filedocumented in this encounter Care Teams Fiber Picker Relationship Specialty [place] [address] [facility] [address] [place] [address] PCP - General Family Practice 02/22/20 documented as of this encounter
--- OUTSIDE RECORDS SUMMARY | 2024-10-04 08:14 | XMS_ITS | Encounter Summary ---
Author Organization [employer] Address [address] [place] [address] Care Team Providers Care Civil Preparedness Officer Name Role Phone Tae Patel MD Primary Care Provider [phone] Encounter Details Date Type Department Care Team (Late st Contact Info) Description 12/22/2006 Orders Only [facility] Diabetic [facility] [address] [address] 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 WHO CALLED: Pharmacy called. PHARMACY NUMBER: [phone] SECTION 1: REQUESTED ACTION ivan 12/22/06 at 03:57 pm: MEDICATION REQUEST: Patient requests a refill. MEDICATIONS: ENALAPRIL MALEATE ORAL TABLET 2.5 MG, 1 Every Day, 30 Dispensed, status: CONTINUED, 08/27/2006. DOCTOR`S RESPONSE: braulio 12/22/06 at 04:05 pm Please schedule an appointment with me in the next 4 weeks. Refill this time only. FINAL ACTION: thalia 12/22/06 at 04:14 pm Called pharmacy at 12/22/06 at 04:14 pm. refilled this time only and left message informing pt to schedule an appt Electronically Signed by: Misty Mitchell on Friday, December 22, 2006 documented in this encounter Plan of Treatment Not on file documented as of this encounter Visit Diagnoses Not on filedocumented in this encounter Care Teams Civil Preparedness Officer Relationship Specialty [place] [address] [address] PCP - General Family Practice 02/22/20 documented as of this encounter
--- OUTSIDE RECORDS SUMMARY | 2024-10-04 08:14 | XMS_ITS | Encounter Summary ---
Author Organization [facility] Address [address] [place] [address] Care Team Providers Care Lithographic Stripper Name Role Phone Tae Patel MD Primary Care Provider [phone] Encounter Details Date Type Department Care Team (Latest Contact Info) Description 11/25/2005 Outpatient Historical [facility] Internal Medicine [place] [address] [address] [facility] [address] [place] [address] Wayne Martin MD [address] [place] [address] Essential Hypertension, Benign (Primary Dx) Social History Tobacco Use Types Packs/Day Years Used Date Smoking Tobacco: Never Assessed Sex and Gender Information Value Date Recorded Sex Assigned at Not on file 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 Gender Identity Not on file Sexual Orientation Not on file documented as of this encounter Plan of Treatment Not on file documented as of this encounter Procedures Procedure Name Priority Date/Time Associated Diagnosis Comments CBC WITH DIFFERENTIAL Routine 11/25/2005 3:12 PM CDT CBC WITH DIFFERENTIAL Routine 11/25/2005 3:12 PM CDT URINALYSIS W/REFLEX MICROSCOPIC Routine 11/25/2005 3:12 PM CDT TSH Routine 11/25/2005 3:12 PM CDT LIPID PANEL Routine 11/25/2005 3:12 PM CDT COMPREHENSIVE METABOLIC PANEL Routine 11/25/2005 3:12 PM CDT documented in this encounter Results * URINALYSIS (11/25/2005 3:12 PM CDT) COLOR UA Yellow INTERFACE SYSTEM CLARITY UA Clear Clear INTERFACE SYSTEM SPECIFIC GRAVITY UA 1.015 1.001 - 1.035 INTERFACE SYSTEM PH UA 5.0 5.0 - 8.0 INTERFACE SYSTEM LEUKOCYTE ESTERASE UA Negative Negative INTERFACE SYSTEM NITRITE UA Negative Negative INTERFACE SYSTEM PROTEIN UA Negative Negative INTERFACE SYSTEM GLUCOSE UA Negative Negative INTERFACE SYSTEM KETONES UA Negative Negative INTERFACE SYSTEM UROBILINOGEN UA <1 <=1 mg/dL INTE RFACE SYSTEM BILIRUBIN UA Negative Negative INTERFA CE SYSTEM BLOOD UA Negative Negative INTERFACE SYSTEM 11/25/2005 3:12 PM CDT Wayne Martin MD URINE ORDERABLES Final Result Performing Organization Address [facility] Phone Number INTERFACE SYSTEM Refer to clinic/hospital department * CBC WITH DIFFERENTIAL (11/25/2005 3:12 PM CDT) NEUTROPHILS 56 45 - 70 % INTERFAC E SYSTEM LYMPHOCYTES 35 16 - 45 % INTERFAC E SYSTEM MONOCYTES 9 3 - 13 % INTERFACE SYSTEM EOSINOPHILS 1 0 - 7 % INTERFAC E SYSTEM BASOPHILS 0 0 - 2 % INTERFACE SYSTEM NEUTROPHIL ABSOLUTE 3.92 1.90 - 7.00 K/uL INTERFACE SYSTEM LYMPHOCYTE ABSOLUTE 2.46 0.70 - 4.50 K/uL INTERFACE SYSTEM MONOCYTE ABSOLUTE 0.61 0.10 - 1.30 K/uL INTERFACE SYSTEM EOSINOPHIL ABSOLUTE 0.08 0.00 - 0.70 K/uL INTERFACE SYSTEM BASOPHILS ABSOLUTE 0.01 0.00 - 0.20 K/uL INTERFACE SYSTEM 11/25/2005 3:12 PM CDT Wayne Martin MD HEMATOLOGY ORDERABLES Final Re sult Performing Organization Address [facility] Phone Number INTERFACE SYSTEM Refer to clinic/hospital department * CBC WITH DIFFERENTIAL (11/25/2005 3:12 PM CDT) WBC 7.1 4.0 - 9.8 K/uL INTERFACE SYSTEM RBC 5.08 4.50 - 5.40 M/uL INTERFACE SYSTEM HEMOGLOBIN 15.8 13.6 - 16.5 g/dL INTERFACE SYSTEM HEMATOCRIT 45.5 40.0 - 48.0 % INTERFACE SYSTEM MCV 89.6 82.0 - 99.0 fL INTERFACE SYSTEM MCH 31.1 27.2 - 32.6 pg INTERFACE SYSTEM MCHC 34.7 31.5 - 35.5 % INTERFACE SYSTEM RDW 12.7 11.5 - 14.5 % INTERFACE SYSTEM RDW-STDEV 41.4 37.1 - 48.7 fL INTERFACE SYSTEM PLATELETS 259 140 - 350 K/uL INTERFACE SYSTEM MPV 11.0 9.3 - 12.4 fL INTERFACE SYSTEM 11/25/2005 3:12 PM CDT Wayne Martin MD HEMATOLOGY ORDERABLES Final Re sult Performing Organization Address [facility] Phone Number INTERFACE SYSTEM Refer to clinic/hospital department * (ABNORMAL) LIPID PANEL (11/25/2005 3:12 PM CDT) CHOLESTEROL 173 100 - 199 mg/dL INTERFACE SYSTEM TRIGLYCERIDE 86 10 - 149 mg/dL INTERFACE SYSTEM HDL 54 40 - 59 mg/dL INTERFACE SYSTEM LDL CALCULATED 102(H) <=99 mg/dL INTERFACE SYSTEM CHOL/HDL RATIO 3.2 2.0 - 5.0 INTER FACE SYSTEM LIPID PANEL COMMENT See Below INTERFACE SYSTEM Comment: The adult ATP and pediatric NCEP classifications for lipids are available on the [facility] Intranet at: [email or web address] Select: Lab Policies and Procedures Select: Reference Ranges - Lipids 11/25/2005 3:12 PM CDT us aWyne Martin MD CHEMISTRY ORDERABLES Final Res ult Performing Organization Address [facility] Co de Phone Number INTERFACE SYSTEM Refer to clinic/hospital department * TSH (11/25/2005 3:12 PM CDT) TSH 1.58 0.27 - 4.20 uU/mL INTERFACE SYSTEM 11/25/2005 3:12 PM CDT us Wayne Martin MD CHEMISTRY ORDERABLES Final Res ult INTERFACE SYSTEM Refer to clinic/hospital department * (ABNORMAL) COMPREHENSIVE METABOLIC PANEL (11/25/2005 3:12 PM CDT) GLUCOSE 85 65 - 99 mg/dL INTERFACE SYSTEM Comment:Note: Effective October 22, 2005, reference range now reflects a fasting st ate. CREATININE 1.0 0.5 - 1.3 mg/dL INTERFACE SYSTEM CALCIUM 9.5 8.6 - 10.2 mg/dL INTERFACE SYSTEM ALKALINE PHOSPHATASE 59 40 - 129 U/L INTERFACE SYSTEM AST 21 12 - 38 U/L INTERFACE SYSTEM ALT 22 0 - 41 U/L INTERFACE SYSTEM TOTAL PROTEIN 7.6 6.3 - 8.6 g/dL INTERFACE SYSTEM ALBUMIN 4.9(H) 3.4 - 4.8 g/dL INTERFACE SYSTEM BILIRUBIN TOTAL 0.5 0.2 - 1.0 mg/dL INTERFACE SYSTEM BUN 14 6 - 20 mg/dL INTERFACE SYSTEM CO2 24 22 - 30 mmol/L INTERFACE SYSTEM SODIUM 142 135 - 145 mmol/L INTERFACE SYSTEM POTASSIUM 4.0 3.5 - 4.9 mmol/L INTERFACE SYSTEM CHLORIDE 103 96 - 108 mmol/L INTERFACE SYSTEM 11/25/2005 3:12 PM CDT us Wayne Martin MD CHEMISTRY ORDERABLES Final Res ult Performing Organization Address [facility] Co de Phone Number INTERFACE SYSTEM Refer to clinic/hospital department documented in this encounter Visit Diagnoses Diagnosis Essential hypertension, benign- Primary documented in this encounter Care Teams Lithographic Stripper Relationship Specialty [place] [address] [place] [address] PCP - General Family Practice 02/22/20 documented as of this encounter
--- OUTSIDE RECORDS SUMMARY | 2024-10-04 08:14 | XMS_ITS | Encounter Summary ---
Author Organization [facility] Address 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 [address] [place] [id number] PCP - General Family Practice 02/22/20 documented as of this encounter
--- OUTSIDE RECORDS SUMMARY | 2024-10-04 08:14 | XMS_ITS | Encounter Summary ---
Author Organization [facility] Address [address] [place] [address] Care Team Providers Care Systems Integrator Name Role Phone Tae Patel MD Primary Care Provider [phone] Encounter Details Date Type Department Care Team (Late st Contact Info) Description 11/30/2004 Outpatient Historical [facility] Internal Medicine [facility] [address] [address] [facility] [address] [place] [address] Wayne Martin MD [address] [place] [address] Social History Tobacco Use Types Packs/Day Years Used Date Smoking Tobacco: Never Assessed Sex and Gender Information Value Date Recorded Sex Assigned at Not on file 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
== END 2024-10-04 09:03 | disposition home or self-care (01) ==
PROVIDERS: Emergency Provider Nurse Practitioner; PCP Family Medicine
DX: M25.561 Pain in right knee (principal); I10 Essential (primary) hypertension
CPT/HCPCS: 73562; 99213; G0463